=== PATIENT | male | born 1995 | race African-American/Black ===

== ENCOUNTER → 2016-07-15 | Outpatient (REF) | payer OTHER | LOC: M SFHCLERA 16:58 | PROVIDERS: ATTEND Physician Assistant | DX: J06.9 Acute upper respiratory infection, unspecified (principal) ==

== ENCOUNTER → 2017-01-18 | Outpatient (CLI) | payer OTHER ==
--- NOTE | 2017-01-18 13:17 | REP ---
Chest two views HISTORY: Cough Comparison: None The lungs are clear. The heart is normal in size. The pulmonary vasculature is normal in appearance. The bony structure is intact. IMPRESSION: No acute disease. Signed by Jesus Storm MD 01/18/2017 01:08 P
== END ==
LOC: M LRY 12:35
PROVIDERS: ATTEND Physician Assistant
DX: R50.9 Fever, unspecified (principal); R05 Cough
CPT/HCPCS: 71020; 81001; 86308; 87086; G0463

== ENCOUNTER → 2017-01-18 | Outpatient (REF) | payer OTHER | LOC: M SFHCLERA 12:58 | PROVIDERS: ATTEND Physician Assistant | DX: R31.9 Hematuria, unspecified (principal) ==